=== PATIENT | male | born 1965 ===

== ENCOUNTER 2018-07-02 16:32 | Emergency (ER) | payer MEDICAID, OTHER ==
[2018-07-02 16:48] VITALS: BP 164/84; PULSE 57; RESP 16; TEMP 98.4; O2SAT 96
--- NOTE | 2018-07-02 17:31 | C.PDOC ---
History Of Present Illness 52 year old male with PMHx of inguinal hernia presents to the ED requesting substance detoxification from heroin. He reports last use of heroin was 2 hours ago. He states he has been using heroin for the last 5 years. Denies SI/HI, auditory or visual hallucinations. Time Seen by Provider: 07/02/18 17:11 Chief Complaint (Nursing): Substance Abuse History Per: Patient History/Exam Limitations: no limitations Onset/Duration Of Symptoms: Days Current Symptoms Are (Timing): Still Present Suicide/Self Injury Attempted (Context): None Modifying Factor(s): Other (heroin) Associated Symptoms: Suicidal Thoughts Past Medical History Reviewed: Historical Data, Nursing Documentation, Vital Signs Vital Signs: Last Vital Signs Temp 98.4 F 07/02/18 16:46 Pulse 57 L 07/02/18 16:46 Resp 16 07/02/18 16:46 BP 164/84 H 07/02/18 16:46 Pulse Ox 96 07/02/18 16:46 - Medical History Other PMH: inguinal hernia Surgical History: No Surg Hx Family History: States: No Known Family Hx - Social History Hx Alcohol Use: No Hx Substance Use: Yes (last use 5 minutes ago) - Immunization History Hx Tetanus Toxoid Vaccination: No Hx Influenza Vaccination: No Hx Pneumococcal Vaccination: No Review Of Systems Psych: Positive for: Suicidal ideation Physical Exam - Physical Exam Appears: Non-toxic Skin: Warm, Dry Head: Normacephalic Eye(s): bilateral: Normal Inspection Neck: Normal ROM Chest: Symmetrical Cardiovascular: Rhythm Regular Respiratory: Normal Breath Sounds, No Rales, No Rhonchi, No Wheezing Gastrointestinal/Abdominal: Soft, No Tenderness Extremity: Normal ROM Neurological/Psych: Oriented x3, Normal Speech ED Course And Treatment O2 Sat by Pulse Oximetry: 96 (RA) Pulse Ox Interpretation: Normal Medical Decision Making Medical Decision Making: Patient told there are no detox beds available. Patient educated on the detox program and given contact information to set up an appointment. Patient agrees to be discharged and states he will follow up. Disposition Counseled Patient/Family Regarding: Diagnosis, Need For Followup - Disposition Disposition: HOME/ ROUTINE Disposition Time: 17:35 Condition: STABLE Forms: [facility] ([place]), General Discharge Instructions - POA Present On Arrival: None - Clinical Impression Clinical Impression: Drug dependence - Scribe Statement The provider has reviewed the documentation as recorded by the Scribe Daily Escobar All medical record entries made by the Scribovidio were at my direction and personally dictated by me. I have reviewed the chart and agree that the record accurately reflects my personal performance of the history, physical exam, medical decision making, and the department course for this patient. I have also personally directed, reviewed, and agree with the discharge instructions and disposition.
== END 2018-07-02 17:58 | disposition home or self-care (01) ==
LOC: C.ER 16:32
DX: F19.20 Other psychoactive substance dependence, uncomplicated (principal)

== ENCOUNTER 2018-07-03 08:49 | Emergency (ER) | payer OTHER ==
[2018-07-03 08:52] VITALS: BMI 21.1
[2018-07-03 09:02] VITALS: BP 141/75; PULSE 57; RESP 16; TEMP 98.4; O2SAT 100
--- NOTE | 2018-07-03 09:06 | C.PDOC ---
History Of Present Illness 52 y/o male, with Hx of heroin abuse, presents to ED requesting heroin detox. Last use was yesterday. Denies SI, HI, or any active physical complaints at this time. Time Seen by Provider: 07/03/18 08:54 Chief Complaint (Nursing): Substance Abuse History Per: Patient History/Exam Limitations: no limitations Past Medical History Reviewed: Historical Data, Nursing Documentation, Vital Signs Vital Signs: Last Vital Signs Temp 98.4 F 07/03/18 08:52 Pulse 57 L 07/03/18 08:52 Resp 16 07/03/18 08:52 BP 141/75 07/03/18 08:52 Pulse Ox 100 07/03/18 08:52 Family History: States: Unknown Family Hx - Social History Hx Alcohol Use: No Hx Substance Use: Yes (last use 5 minutes ago) - Immunization History Hx Tetanus Toxoid Vaccination: No Hx Influenza Vaccination: No Hx Pneumococcal Vaccination: No Review Of Systems Except As Marked, All Systems Reviewed And Found Negative. Constitutional: Negative for: Fever, Chills Cardiovascular: Negative for: Chest Pain Respiratory: Negative for: Shortness of Breath Physical Exam - Physical Exam Appears: Non-toxic, No Acute Distress Skin: Normal Color, Warm, Dry Head: Atraumatic, Normacephalic Eye(s): bilateral: Normal Inspection Oral Mucosa: Moist Neck: Supple Cardiovascular: Rhythm Regular Respiratory: Normal Breath Sounds, No Rales, No Rhonchi, No Wheezing Gastrointestinal/Abdominal: Soft, No Tenderness Extremity: Normal ROM, No Deformity Neurological/Psych: Oriented x3, Normal Speech ED Course And Treatment O2 Sat by Pulse Oximetry: 100 (RA) Pulse Ox Interpretation: Normal Progress Note: Case discussed and patient provided with outside resources from [employer] Reassessment Condition: Unchanged Disposition Counseled Patient/Family Regarding: Need For Followup - Disposition Referrals: [facility] [Outside] [facility] [Outside] Disposition: HOME/ ROUTINE Disposition Time: 10:00 Condition: STABLE Additional Instructions: Follow up with outpatient services Instructions: Drug Abuse and Drug Addiction (DC), Drug Abuse Treatment Forms: [facility] ([place]) - POA Present On Arrival: None - Clinical Impression Clinical Impression: Narcotic abuse - PA / CARDIAC NURSE / Resident Statement MD/DO has reviewed & agrees with the documentation as recorded. - Scribe Statement The provider has reviewed the documentation as recorded by the Scribe KP All medical record entries made by the Zeyad were at my direction and personally dictated by me. I have reviewed the chart and agree that the record accurately reflects my personal performance of the history, physical exam, medical decision making, and the department course for this patient. I have also personally directed, reviewed, and agree with the discharge instructions and disposition.
== END 2018-07-03 10:10 | disposition home or self-care (01) ==
LOC: C.ER 08:49
DX: F11.10 Opioid abuse, uncomplicated (principal)